=== PATIENT | male | born 1975 | race Hispanic/Latino ===

== ENCOUNTER 2024-05-20 09:01 | Emergency (ER) | payer OTHER ==
[2024-05-20] VITALS (15 sets, daily range): BP systolic 99–128; BP diastolic 57–94
[~2024-05-20] VITALS: Ht 167.6 cm; Wt 72.6 kg
[~2024-05-20 09:01] MED LIST: LOSARTAN POTASS50 MG PO; METFORMIN HCL1000 MG PO
[2024-05-20] MEDS ORDERED: SODIUM CHLORIDE 0.9% 1,000 ML IV ONE (09:15)
[2024-05-20 09:51] LABS: BASO% 0.6 % (0-3); EOS% 1.2 % (0-8); IMMATURE GRANULOCYTES 1.1 % (0.0-5.0); LYMPH% 13.6 % (15-41); MEAN CELL VOLUME 85.2 fL CALC (80.0-100.0); MEAN CORPUSCULAR HGB 27.8 pG CALC (26.0-32.0); MEAN CORPUSCULAR HGB CONC 32.6 g/dL CAL (32.0-36.0); MONO% 5.7 % (2-13); NEUT# 13.95 thou/uL (1.82-7.42); NEUT% 77.8 % (42-76); RED BLOOD COUNT 3.31 mill/uL (4.70-6.10); RED CELL DISTRI WIDTH 13.5 % (11.5-15.5)
[2024-05-20 09:59] LABS: ALBUMIN 3.9 g/dL (3.2-5.0); POTASSIUM 4.2 mmol/l (3.5-5.1)
[2024-05-20 10:03] LABS: HEMATOCRIT 28.2 % (39.0-50.0); HEMOGLOBIN 9.2 g/dl (14.0-18.0)
[2024-05-20 10:04] LABS: CREATININE 1.1 mg/dL (0.7-1.3)
[2024-05-20 10:10] LABS: BILIRUBIN, TOTAL 0.3 mg/dL (0.2-1.3); TOTAL PROTEIN 6.5 g/dL (6.3-8.2)
[2024-05-20 12:19] LABS: URINE BILIRUBIN - DIPSTICK Negative (NEGATIVE); URINE BLOOD DIPSTICK Negative (NEGATIVE); URINE GLUCOSE - DIPSTICK 100 mg/dL (NEGATIVE); URINE KETONE Trace mg/dL (NEGATIVE); URINE LEUK ESTERASE Negative (NEGATIVE); URINE NITRITE - DIPSTICK Negative (Negative); URINE PROTEIN - DIPSTICK Negative (NEG-TRACE); URINE UROBILINOGEN - DIPSTICK 0.2 E.U./dL (0.2)
[2024-05-20 12:21] LABS: URINE COLOR Yellow
== END 2024-05-20 12:55 | disposition home or self-care (01) | DRG 101 ==
LOC: ED 09:01
PROVIDERS: Family Medicine
DX: G40.409 Other generalized epilepsy and epileptic syndromes, not intractable, without status epilepticus (principal); I10 Essential (primary) hypertension; E11.9 Type 2 diabetes mellitus without complications; T42.76XA Underdosing of unspecified antiepileptic and sedative-hypnotic drugs, initial encounter; Z91.128 Patient's intentional underdosing of medication regimen for other reason; Z79.84 Long term (current) use of oral hypoglycemic drugs; Z95.1 Presence of aortocoronary bypass graft
CPT/HCPCS: J1953